=== PATIENT | female | born 1990 | race American Indian/Alaskan Native ===

== ENCOUNTER 2019-04-19 13:13 | Emergency (ER) | payer MEDICARE ==
[2019-04-19 14:48] VITALS: BP 164/107
--- NOTE | 2019-04-19 14:52 | Emergency Department Report ---
- General Chief Complaint: Upper Respiratory Infection Stated Complaint: COUGH Time Seen by Provider: 04/19/19 14:43 Source: patient Mode of arrival: Ambulatory Limitations: No Limitations - History of Present Illness Initial Comments: 28 y/o female comes in for 1 day history of bodyaches, cough and fever. Has a hx/o HTN and TBI and is currently on Amlodipine. Last took IB 0800. Did not get the fluid vaccine. MD Complaint: fever, cough, sore throat Onset/Timin -: days(s) Severity scale (0 -10): 9 Quality: aching Consistency: constant Improves With: nothing Worsens With: nothing Associated Symptoms: fever, chills, cough Treatments Prior to Arrival: none - Related Data Previous Rx's Medication Instructions Recorded Last Taken Type Oseltamivir [Tamiflu] 75 mg PO BID 5 Days #10 cap 04/19/19 Unknown Rx Allergies Allergy/AdvReac Type Severity Reaction Status Date / Time Penicillins Allergy Swelling Verified 04/19/19 13:14 ED Review of Systems ROS: Stated complaint: COUGH Other details as noted in HPI Comment: All other systems reviewed and negative ED Past Medical Hx - Past Medical History Hx Hypertension: Yes - Surgical History Additional Surgical History: HERNIA / TBI 20 YRS AGO - Medications Home Medications: Home Medications Medication Instructions Recorded Confirmed Last Taken Type Oseltamivir [Tamiflu] 75 mg PO BID 5 Days #10 cap 04/19/19 Unknown Rx ED Physical Exam - General Limitations: No Limitations General appearance: alert, in no apparent distress - Head Head exam: Present: atraumatic, normocephalic - Eye Eye exam: Present: normal appearance - ENT ENT exam: Present: mucous membranes moist - Neck Neck exam: Present: normal inspection, full ROM - Respiratory Respiratory exam: Present: normal lung sounds bilaterally, other (coughing). Absent: respiratory distress - Extremities Exam Extremities exam: Present: normal inspection, full ROM - Back Exam Back exam: Present: normal inspection, full ROM - Neurological Exam Neurological exam: Present: alert, oriented X3, normal gait - Psychiatric Psychiatric exam: Present: normal affect, normal mood - Skin Skin exam: Present: warm, dry, intact, normal color. Absent: rash ED Medical Decision Making - Medical Decision Making 28 y/o female comes in for 1 day history of bodyaches, cough and fever. Has a hx/o HTN and TBI and is currently on Amlodipine. Last took IB 0800. Did not get the fluid vaccine. Tamiflu, IB or Tylenol claritin 10 mg daily. Increase fluids F/u with your PCP. Critical care attestation.: If time is entered above; I have spent that time in minutes in the direct care of this critically ill patient, excluding procedure time. ED Disposition Clinical Impression: Flu-like symptoms Disposition: DC- TO HOME OR SELFCARE Is pt being admited?: No Does the pt Need Aspirin: No Condition: Stable Additional Instructions: Tamiflu, Ibuprofen or Tylenol claritin 10 mg daily. Increase fluids F/u with your PCP. Understand Tamiflu only decrease symptoms of the flu by 1 day. It can cause nausea and abd pains. Prescriptions: Oseltamivir [Tamiflu] 75 mg PO BID 5 Days #10 cap Referrals: your,Primary Care Provider [Other] - 3-5 Days Forms: Work/School Release Form(ED)
== END 2019-04-19 15:45 | disposition home or self-care (01) ==
LOC: ED 13:13
DX: J11.1 Influenza due to unidentified influenza virus with other respiratory manifestations (principal); R50.9 Fever, unspecified; I10 Essential (primary) hypertension; Z88.0 Allergy status to penicillin; Z79.899 Other long term (current) drug therapy; Z98.890 Other specified postprocedural states
CPT/HCPCS: 99282

== ENCOUNTER 2019-06-01 20:41 | Emergency (ER) | payer SELFPAY ==
--- NOTE | 2019-06-01 21:14 | Event Note ---
ED Screening Note ED Screening Note: The patient was seen in triage for post surgical knee pain and swelling and fever. Pain worsen since surgery 6 days ago. Denies trauma. Labs/imaging ordered to evaluate for a cause of this complaint. Vital signs reviewed, patient awake and alert in NAD. This initial assessment/diagnostic orders/clinical plan/treatment(s) is/are subject to change based on patients health status, clinical progression and re- assessment by fellow clinical providers in the ED. Further treatment and workup at subsequent clinical providers discretion. Patient/guardian urged not to elope from the ED as their condition may be serious if not clinically assessed and managed. Initial orders include:
[2019-06-01 21:37] LABS: Basophils # (Auto) 0.1 K/mm3 (0.0-0.1); Basophils % (Auto) 1.4 % (0.0-1.8); Eosinophils # (Auto) 0.2 K/mm3 (0.0-0.4); Hematocrit 36.1 % (30.3-42.9); Hemoglobin 12.5 gm/dl (10.1-14.3); Lymphocytes # (Auto) 2.5 K/mm3 (1.2-5.4); Lymphocytes % (Auto) 31.4 % (13.4-35.0); Mean Corpuscular HGB Conc 35 % (30-34); Mean Corpuscular Volume 88 fl (79-97); Monocytes # (Auto) 1.1 K/mm3 (0.0-0.8); Platelet Count 420 K/mm3 (140-440); Red Blood Count 4.08 M/mm3 (3.65-5.03); Red Cell Distribution Width 13.5 % (13.2-15.2)
[2019-06-01] MEDS ORDERED: MORPHINE 4 MG/1 ML INJ IV ONE (22:12)
[2019-06-01] MEDS ORDERED: ONDANSETRON 4 MG/2 ML INJ IV ONE ×2 (22:13→22:16)
[2019-06-01 22:15] LABS: Alanine Aminotransferase 15 units/L (7-56); Albumin 4.4 g/dL (3.9-5); BUN/Creatinine Ratio 14; Blood Urea Nitrogen 11 mg/dL (7-17); Calcium 9.4 mg/dL (8.4-10.2); Hemolysis Index 1
[2019-06-01] MEDS ORDERED: MORPHINE 4 MG/1 ML INJ ONE (22:16)
[2019-06-01] MEDS ORDERED: fentaNYL 100 MCG/2 ML INJ IV ONE (22:16)
--- NOTE | 2019-06-01 22:26 | Emergency Department Report ---
HPI - General Chief Complaint: Extremity Injury, Lower Time Seen by Provider: 06/01/19 21:06 - HPI HPI: Room 1 The patient is a 29-year-old female present with a chief complaint of left knee pain.. The patient states she had a repair of the fibular fracture 06/01/[address] Alvarez at [facility]. The patient states her pain is been increasing daily since the surgery. She states she contacted her orthopedic surgeon today and he called in a prescription for tramadol but it has not helped her pain. The patient states she contacted her orthopedic surgeon again and was advised to come to the emergency department. The patient states she did fall down the stairs 4 days ago and her pain increased. ED Past Medical Hx - Past Medical History Previous Medical History?: Yes Hx Hypertension: Yes Hx Seizures: Yes Additional medical history: TBI - Surgical History Past Surgical History?: Yes Additional Surgical History: bilateral HERNIA repair, Left knee Fractured fibula repair. - Family History Family history: no significant - Social History Smoking Status: Never Smoker Substance Use Type: None (Denies illicit drug use) - Medications Home Medications: Home Medications Medication Instructions Recorded Confirmed Last Taken Type Oseltamivir [Tamiflu] 75 mg PO BID 5 Days #10 cap 04/19/19 Unknown Rx Ciprofloxacin HCl [Ciprofloxacin 500 mg PO Q12HR #14 tab 06/01/19 Unknown Rx TAB] HYDROcodone/APAP 5-325 [Kendalia 1 - 2 each PO Q6HR PRN #14 tablet 06/01/19 Unkno wn Rx 5/325] Ibuprofen [Motrin 800 MG tab] 800 mg PO Q8HR PRN #20 tablet 06/01/19 Unknown Rx ED Review of Systems ROS: Stated complaint: LT LEG PAIN JUST HAD SURGERY Other details as noted in HPI Constitutional: no symptoms reported Respiratory: no symptoms reported Musculoskeletal: arthralgia Physical Exam - Physical Exam Vital Signs: Vital Signs 06/01/19 06/01/19 06/01/19 20:51 21:06 21:48 Temperature 99.5 F 99.5 F 99.9 F H Pulse Rate 116 H 112 H 113 H Respiratory 18 20 18 Rate Blood Pressure 157/107 157/107 Blood Pressure 142/103 [Right] O2 Sat by Pulse 98 97 98 Oximetry Physical Exam: GENERAL: The patient is well-developed well-nourished female lying on stretcher not appearing to be in acute distress. [] HEENT: Normocephalic. Atraumatic. Extraocular motions are intact. Patient has moist mucous membranes. NECK: Supple. Trachea midline CHEST/LUNGS: There is no respiratory distress noted. HEART/CARDIOVASCULAR: Regular. There is no tachycardia. 2+ left DP SKIN: There is no rash. No evidence of cellulitis. Surgical sites clean dry and intact NEURO: The patient is awake, alert, and oriented. The patient is cooperative. The patient has no focal neurologic deficits. The patient has normal speech MUSCULOSKELETAL: There is pain and swelling of the left knee. There is no tenderness to palpation of the posterior left lower extremity or calf ED Course Vital Signs 06/01/19 06/01/19 06/01/19 20:51 21:06 21:48 Temperature 99.5 F 99.5 F 99.9 F H Pulse Rate 116 H 112 H 113 H Respiratory 18 20 18 Rate Blood Pressure 157/107 157/107 Blood Pressure 142/103 [Right] O2 Sat by Pulse 98 97 98 Oximetry ED Medical Decision Making - Lab Data Result diagrams: 06/01/19 21:22 06/01/19 21:22 - Radiology Data Radiology results: report reviewed (Left knee x-ray), image reviewed (Left knee x-ray) Findings [facility] [address] [place] [address] XRay Report Signed Patient: LOU GARRIDO MR#: [id number] : 1990 Acct:[id number] Age/Sex: 29 / F ADM Date: 06/01/19 Loc: ED Attending Dr: Ordering Physician: JUAN CARLOS PINZON Date of Service: 06/01/19 Procedure(s): XR knee 3V LT Accession Number(s): [id number] cc: JUAN CARLOS PINZON Fluoro Time In Minutes: HISTORY:MAIN: pain and swelling;Had surgery left Fibula 1 week ago. Stating that pain meds are not working and severe pain today. COMPARISON: None. TECHNIQUE: AP lateral and obliques views were obtained FINDINGS: Bones: No fracture or dislocation. Joint spaces: Maintained. Soft tissues: Soft tissue is present with a large suprapatellar effusion Additional findings: None. IMPRESSION: 1. Large suprapatellar effusion Signer Name: Cam Weeks MD Signed: 06/02/2019 12:37 AM Workstation Name: [email or web address] Transcribed By: WG Dictated By: Cam Weeks MD Electronic ally Authenticated By: Cam Weeks MD Signed Date/Time: 06/02/1936 DD/ TD/TT: - Medical Decision Making Patient advised to follow-up with her orthopedic surgeon - Differential Diagnosis Postop pain, new fibula fracture Critical care attestation.: If time is entered above; I have spent that time in minutes in the direct care of this critically ill patient, excluding procedure time. ED Disposition Clinical Impression: Postoperative pain of extremity, UTI (urinary tract infection), Contusion of left leg Disposition: - TO HOME OR SELFCARE Is pt being admited?: No Does the pt Need Aspirin: No Condition: Stable Additional Instructions: Return to the emergency department should you develop worsening symptoms, inability to tolerate food or liquids, high fever or any other concerns Prescriptions: Ciprofloxacin HCl [Ciprofloxacin TAB] 500 mg PO Q12HR #14 tab Ibuprofen [Motrin 800 MG tab] 800 mg PO Q8HR PRN #20 tablet PRN Reason: Pain, Moderate (4-6) HYDROcodone/APAP 5-325 [Kendalia 5/325] 1 - 2 each PO Q6HR PRN #14 tablet PRN Reason: Pain Referrals: LAILA DIAZ MD [Primary Care Provider] - [facility] Time of Disposition: 00:49
[2019-06-01] MEDS ORDERED: KETOROLAC 30 MG/1 ML INJ ONE (22:41)
[2019-06-01] MEDS ORDERED: HYDROmorphone 1 MG/1 ML INJ ONE (22:41)
[2019-06-01] MEDS ORDERED: HYDROmorphone 1 MG/1 ML INJ IV ONE (22:44)
[2019-06-01] MEDS ORDERED: KETOROLAC 30 MG/1 ML INJ IV ONE (22:44)
[2019-06-01 23:35] LABS: Bacteria,Urine 1+ /HPF (Negative); Bilirubin,Urine NEG (Negative); Blood,Urine LG (Negative); Color,Urine Yellow (Yellow); Mucus,Urine 3+ /HPF; Urobilinogen,Urine < 2.0 mg/dL (<2.0)
[2019-06-01 23:46] LABS: HCG Qualitative,Urine Negative (Negative)
--- NOTE | 2019-06-02 00:41 | XRay Report ---
HISTORY:MAIN: pain and swelling;Had surgery left Fibula 1 week ago. Stating that pain meds are not wo rking and severe pain today. COMPARISON: None. TECHNIQUE: AP lateral and obliques views were obtained FINDINGS: Bones: No fracture or dislocation. Joint spaces: Maintained. Soft tissues: Soft tissue is present with a large suprapatellar effusion Additional findings: None. IMPRESSION: 1. Large suprapatellar effusion Signer Name: Cam Weeks MD Signed: 06/02/2019 12:37 AM Workstation Name: [email or web address]
[2019-06-02 01:30] VITALS: BP 128/82
== END 2019-06-02 01:31 | disposition home or self-care (01) ==
LOC: ED 20:41
DX: S80.12XA Contusion of left lower leg, initial encounter (principal); G89.18 Other acute postprocedural pain; N39.0 Urinary tract infection, site not specified; I10 Essential (primary) hypertension; Z86.69 Personal history of other diseases of the nervous system and sense organs; Z98.890 Other specified postprocedural states; Z79.1 Long term (current) use of non-steroidal anti-inflammatories (NSAID); Z88.0 Allergy status to penicillin; X58.XXXA Exposure to other specified factors, initial encounter; Y93.89 Activity, other specified; Y92.89 Other specified places as the place of occurrence of the external cause; Y99.8 Other external cause status
CPT/HCPCS: 36415; 73562; 80053; 81001; 81025; 82140; 85025; 87040; 87086; 96374; 96375; 99284; J1170; J1885; J2405; J3010; J2270